=== PATIENT | female | born 1940 | race African-American/Black ===

== ENCOUNTER 2021-12-31 09:50 | Emergency (ER) | payer MEDICARE, OTHER ==
[~2021-12-31] VITALS: Ht 152.4 cm; Wt 63.5 kg
[~2021-12-31 09:50] MED LIST: LISI2.5T2 PO
[2021-12-31 10:36] VITALS: BP 129/84
--- NOTE | 2021-12-31 11:27 | NUR ---
Pt refusing to wait and opting to leave/Eloped
[2021-12-31] MEDS ORDERED: SERT100T PO (11:50)
[2021-12-31] MEDS ORDERED: [UNRECOGNIZED DRUG - CODE] PO (11:50)
== END 2021-12-31 12:41 | disposition home or self-care (01) ==
LOC: ER 09:56
DX: Z76.0 Encounter for issue of repeat prescription (principal); F41.9 Anxiety disorder, unspecified; I10 Essential (primary) hypertension; Z60.2 Problems related to living alone; Z79.899 Other long term (current) drug therapy